=== PATIENT | female | born 1965 | race Caucasian/White ===

== ENCOUNTER → 2016-07-01 | Outpatient (CLI) | payer OTHER ==
[~2016-07-01] MED LIST: AMIT10TA6 PO; AMLO-114 PO; DIPH-437 PO; ETOD500T95 PO; FLUO40CA8 PO; MULTTAB58 PO; OSPE1TAB2 PO; PRT/20 PO; TRIATAB3 PO
--- NOTE | 2016-07-02 13:19 | MAMMOGRAPHY REPORT ---
BILATERAL DIGITAL SCREENING MAMMOGRAM TOMOSYNTHESIS WITH CAD: 07/01/2016 CLINICAL HISTORY: Routine screening. Patient has no complaints. TECHNIQUE: Breast tomosynthesis in addition to standard 2D mammography was performed. Current study was also evaluated with a Computer Aided Detection (CAD) system. COMPARISON: Comparison is made to exams dated: 06/27/2015 mammogram, 06/24/2014 mammogram, 01/01/2013 mammogram, 07/02/2012 specimen, 07/02/2012 localization, and 06/19/2012 ultrasound - [facility] [address] BREAST COMPOSITION: There are scattered areas of fibroglandular density in both breasts. FINDINGS: There is a 7.1 mm nodular asymmetry in the middle one third of the left breast, along the posterior nipple line on the CC view (slice 13 on the CC tomosynthesis images). This is not clearl y seen on the MLO view or MLO tomosynthesis images. Additional spot compression tomosynthesis views and possibly ultrasound are recommended. There is evidence of prior surgery within the right breast. No other suspicious mass, architectural distortion or cluster of microcalcifications is seen bilaterally. IMPRESSION: ACR BI-RADS CATEGORY 0: INCOMPLETE EVALUATION: NEED ADDITIONAL IMAGING EVALUATION The 7.1 mm nodular asymmetry in the left breast needs additional evaluation. The patient will be called to schedule an appointment. Approximately 10% of breast cancers are not detected with mammography. A negative mammographic repor t should not delay biopsy if a clinically suggestive mass is present. Smita Ag M.D. ay/:07/01/2016 17:46:41 Manager Epic: Larissa DIAS)(Dewayne), [facility] letter sent: Addl Imaging 0 BI-RADS Code: ACR BI-RADS Category 0: Incomplete Evaluation: Need Additional Imaging Evaluation
== END | disposition home or self-care (01) ==
LOC: C.MAMM 07:29
PROVIDERS: ATTEND Physician Assistant
DX: Z12.31 Encounter for screening mammogram for malignant neoplasm of breast (principal); N64.89 Other specified disorders of breast

== ENCOUNTER → 2016-07-08 | Outpatient (CLI) | payer OTHER ==
--- NOTE | 2016-07-08 13:19 | MAMMOGRAPHY REPORT ---
UNILATERAL LEFT DIGITAL DIAGNOSTIC MAMMOGRAM TOMOSYNTHESIS AND TARGETED LEFT ULTRASOUND: 07/08/2016 CLINICAL HISTORY: 50 year-old woman called back from screening mammography for a 6 mm asymmetry in t he middle one third of the left breast, along the posterior nipple line on the CC view. TECHNIQUE: Spot compression left CC and MLO tomosynthesis images were obtained. COMPARISON: Comparison is made to exams dated: 07/01/2016 mammogram, 06/27/2015 mammogram, 06/21/2013 m ammogram, 06/24/2014 mammogram, 01/01/2013 mammogram, and 07/02/2012 [facility]. BREAST COMPOSITION: There are scattered areas of fibroglandular density in the left breast. FINDINGS: Spot compression views of the left breast, particularly the spot compression CC view demon strates persistence of a 6 mm nodular asymmetry in the middle one third of the breast, along the pos terior nipple line on the CC view. No associated architectural distortion or spiculation. When com paring back to prior available mammograms, this asymmetry appears similar to the 06/24/2014 exam, retana ggesting it could represent normal fibroglandular tissue. No suspicious clustered microcalcificatio ns are seen. Further evaluation with ultrasound was performed. Targeted ultrasound was performed in the 12:00, retroareolar and 6:00 axes of the left breast. Ther e is a lobulated slightly hypoechoic lesion in the 6:00 periareolar left breast measuring 4.7 x 2.5 x 4.2 mm. Another similar appearing hypoechoic nodular areas are scattered throughout the remainder of the 6:00 axis and also in the periareolar/subareolar breast and real-time ultrasound. There is no evidence of a suspicious solid or cystic mass. IMPRESSION: ACR-BI-RADS CATEGORY 3: PROBABLY BENIGN, TARGETED ULTRASOUND ACR-BI-RADS CATEGORY 3: IL OBABLY BENIGN The asymmetry in the middle one third of the left breast along the posterior nipple line on the CC v iew has no suspicious sonographic correlate. The appearance is somewhat similar to the 2015 mammogr am, suggesting benignity. However, a short interval follow-up diagnostic left mammogram and possibl e repeat ultrasound is recommended to ensure stability in 6 months. These results and recommendations were discussed with the patient at the time of the exam. She tent atively scheduled a follow-up appointment prior to leaving our department. Approximately 10% of breast cancers are not detected with mammography. A negative mammographic repor t should not delay biopsy if a clinically suggestive mass is present. Smita Ag M.D. ay/:07/08/2016 12:39:00 Sales Development Executive: Constance Ashton RT(Dimitris)(Dewayne), [facility] letter sent: Follow Up Recommended 3 BI-RADS Code: ACR-BI-RADS Category 3: Probably Benign Ultrasound BI-RADS: ACR-BI-RADS Category 3: P robably Benign
== END | disposition home or self-care (01) ==
LOC: C.MAMM 10:07
PROVIDERS: ATTEND Physician Assistant
DX: R92.8 Other abnormal and inconclusive findings on diagnostic imaging of breast (principal); N64.89 Other specified disorders of breast

== ENCOUNTER → 2017-01-08 | Outpatient (CLI) | payer OTHER ==
--- NOTE | 2017-01-08 14:26 | MAMMOGRAPHY REPORT ---
UNILATERAL LEFT DIGITAL DIAGNOSTIC MAMMOGRAM TOMOSYNTHESIS WITH CAD AND TARGETED LEFT ULTRASOUND: CLINICAL HISTORY: 51-year-old woman presents for follow-up of a 7 mm nodular asymmetry in the left br east along the posterior nipple line on the CC view approximately 4 cm distal to the nipple. On prio r ultrasound hypoechoic nodular areas were identified without evidence of a suspicious solid mass. TECHNIQUE: Left breast tomosynthesis in addition to standard 2D mammography was performed. Current st udy was also evaluated with a Computer Aided Detection (CAD) system. COMPARISON: Comparison is made to exams dated: 07/08/2016 ultrasound, 07/08/2016 mammogram, 07/01/2016 mammogram, 06/27/2015 mammogram, 06/24/2014 mammogram, and 06/21/2013 mammogram - [facility]. BREAST COMPOSITION: There are scattered areas of fibroglandular density in the left breast. FINDINGS: On the full field left CC projection, a square-shaped 6.6 x 4.0 mm nodular asymmetry is aga in identified in the left breast along the posterior nipple line, 4 cm distal to the nipple. The siz e and appearance is similar to the 07/01/2016 mammogram and also very similar dating back to the 06/15 mammogram. A more rounded partially circumscribed nodular area is seen 2 cm anterior to the f irst on CC tomosynthesis slice 21 that measures 5 mm. There is no evidence of a new suspicious spicu lated or irregular mass, focal area of architectural distortion, asymmetry or suspicious microcalcifi cation. Further evaluation with ultrasound was performed. Targeted ultrasound was performed in the left breast with particular attention to the 6:00 axis given that the mammographic findings correspond inferiorly with regard to the tomosynthesis localizer bar. Hypoechoic nodular areas are again identified in particular in the 1:00 axis, 6 cm from the nipple, there is a microlobulated hypoechoic solid appearing mass with adjacent tubular structure coursing t o this area. This suggests it could represent an intraductal lesion such as a papilloma. It measure s 3.5 x 2.6 x 2.4 mm. A second more rectangular hypoechoic nodular area is seen in the adjacent 6:00 left breast, 1 cm from the nipple, measuring 6.1 x 2.6 x 2.4 mm. A third area is seen in the 6:00 p eriareolar/retroareolar breast measuring 5.5 x 3.0 x 4.0 mm. Biopsy of the nodular hypoechoic lesion with adjacent tubular structure is recommended to exclude the possibility of a papilloma. Correlati on with postprocedure mammograms after clip placement is recommended to assess if this aligns with th e more rounded or rectangular asymmetry in question. IMPRESSION: ACR BI-RADS CATEGORY 4: SUSPICIOUS, TARGETED ULTRASOUND ACR BI-RADS CATEGORY 4: SUSPICIO US 1. Ultrasound-guided core biopsy is recommended for a possible intraductal mass in the 6:00 left jamie ast, 1 cm from the nipple. It is unclear which of the 2 mammographic asymmetries this may correlate with and correlation with post procedure mammograms is recommended. 2. Pending benign pathology results, could reassess the nodular asymmetries in the left breast with diagnostic, stenosis mammograms in 6 months. Annual right mammography will also be due at that time. These results and recommendations were discussed with the patient at the time of the exam. Approximately 10% of breast cancers are not detected with mammography. A negative mammographic report should not delay biopsy if a clinically suggestive mass is present. Smita Ag M.D. ay/:01/08/2017 08:51:00 Linux Security Administrator: Diane ZUNIGA(Dimitris)(Dewayne), [facility] letter sent: Abnormal 4/5 BI-RADS Code: ACR BI-RADS Category 4: Suspicious Ultrasound BI-RADS: ACR BI-RADS Category 4: Suspici ous
== END | disposition home or self-care (01) ==
LOC: C.MAMM 07:52
PROVIDERS: ATTEND Physician Assistant
DX: N64.89 Other specified disorders of breast (principal); N63.0 Unspecified lump in unspecified breast

== ENCOUNTER → 2017-07-30 | Outpatient (CLI) | payer OTHER ==
--- NOTE | 2017-07-30 15:24 | MAMMOGRAPHY REPORT ---
BILATERAL DIGITAL DIAGNOSTIC MAMMOGRAM TOMOSYNTHESIS WITH CAD: 07/30/2017 CLINICAL HISTORY: The patient presents for follow-up after ultrasound-guided biopsy of a left 6:00 br east mass January 2017 which yielded benign pathology. The patient reports no current complaints. TECHNIQUE: Breast tomosynthesis in addition to standard 2D mammography was performed. Current study was also evaluated with a Computer Aided Detection (CAD) system. Bilateral CC and MLO 2D and tomosyn thesis images were obtained. COMPARISON: Comparison is made to exams dated: 01/20/2017 ultrasound biopsy, 01/20/2017 mammogram, ultrasound, 01/08/2017 mammogram, 07/08/2016 ultrasound, and 07/08/2016 mammogram - [facility]. BREAST COMPOSITION: There are scattered areas of fibroglandular density in both breasts. FINDINGS: There are no suspicious masses, calcifications, or areas of architectural distortion noted within either breast. A biopsy clip is again noted within the left 6:00 breast from benign ultrasoun d-guided biopsy. There is stable mild postsurgical architectural distortion within the right upper o uter quadrant. Bilateral asymmetries and scattered bilateral benign-appearing calcifications are not significantly changed. IMPRESSION: ACR BI-RADS CATEGORY 2: BENIGN There is no mammographic evidence of malignancy in either breast. A 1 year screening mammogram is rec ommended. The patient has been verbally notified of the results. Approximately 10% of breast cancers are not detected with mammography. A negative mammographic report should not delay biopsy if a clinically suggestive mass is present. Jessica Eldridge M.D. ah/:07/30/2017 08:27:43 Active Directory Specialist: Constance ZUNIGA(Dimitris)(M), [facility] letter sent: Normal 1/2 BI-RADS Code: ACR BI-RADS Category 2: Benign
== END | disposition home or self-care (01) ==
LOC: C.MAMM 08:08
PROVIDERS: ATTEND Physician Assistant
DX: R92.8 Other abnormal and inconclusive findings on diagnostic imaging of breast (principal)